=== PATIENT | female | born 1955 | race Caucasian/White ===

== ENCOUNTER 2025-02-06 09:07 | Emergency (ER) | payer MEDICARE, OTHER ==
[~2025-02-06] VITALS: Ht 165.1 cm; Wt 62.0 kg
[2025-02-06] MEDS ORDERED: LISINOPRIL10 MG PO (09:32)
[2025-02-06] MEDS ORDERED: LIRAGLUTID0.6 MG/0.1 (09:33)
[2025-02-06] MEDS ORDERED: EZETIMIBE10 MG PO (09:34)
[2025-02-06] MEDS ORDERED: VAGIFEM10 MCG VAGINAL (09:35)
[2025-02-06] MEDS ORDERED: MORPHINE SULFATE 4 MG/ML VIAL IV ONE (10:00)
[2025-02-06 10:10] LABS: BASOPHILS 0.2 % (0.1-1.2); EOSINOPHILS 0 % (0.7-5.8); LYMPHOCYTES 5.4 % (19.3-51.7); MCH 30.6 PG (25.6-32.2); MCHC 33.0 g/dL (32.2-35.5); MCV 92.9 fL (79.4-94.8); MONOCYTES 3.7 % (4.7-12.5); NEUTROPHILS 90.3 % (34.0-71.1); RBC 4.90 M/uL (3.93-5.22)
[2025-02-06 10:26] LABS: ALT (SGPT) 17.0 U/L (14-59); AST (SGOT) 16.0 U/L (15-37); GLOMERULAR FILTRATION RATE,EST 63.0 mL/min (>60); PROTEIN, TOTAL 7.3 g/dL (6.4-8.2); UREA NITROGEN 19.0 mg/dL (7-18)
[2025-02-06] MEDS ORDERED: SODIUM CHLORIDE 0.9% 1,000 ML IV PRN (11:00)
[2025-02-06 12:33] LABS: BLOOD/HGB, URINE LARGE (Negative); KETONE, URINE SMALL (Negative)
[2025-02-06 12:34] LABS: LEUK ESTERASE, URINE TRACE (negative); NITRITE, URINE NEGATIVE (negative)
[2025-02-06 12:36] LABS: CRYSTALS, URINE NONE SEEN (0-1+); EPITHELIAL CELLS, URINE SQUAMOUS 1+ /lpf (0-1+)
[2025-02-06 12:37] LABS: BACTERIA, URINE 1+ /hpf (negative); CASTS, URINE NONE SEEN \\lpf; REFLEX CULTURE, URINE No (No)
[2025-02-06] MEDS ORDERED: CEPHALEXIN500 M1 PO (13:25)
[2025-02-06] MEDS ORDERED: FLOMAX0.4 MG PO (13:25)
[2025-02-06] MEDS ORDERED: ONDANSETRON ODT4 MG PO (13:25)
[2025-02-06] MEDS ORDERED: HYDROCODON-ACE1 EA10 PO (13:25)
[2025-02-06 13:38] VITALS: BP 104/67
== END 2025-02-06 13:40 | disposition home or self-care (01) ==
LOC: ED 09:07
PROVIDERS: Emergency Medicine
DX: N13.2 Hydronephrosis with renal and ureteral calculous obstruction (principal); Z87.442 Personal history of urinary calculi; E11.9 Type 2 diabetes mellitus without complications; I10 Essential (primary) hypertension; E78.5 Hyperlipidemia, unspecified; Z79.899 Other long term (current) drug therapy
CPT/HCPCS: 36415; 74176; 80053; 81001; 85025; 96374; 96375; 99284-25; J2270; J2405; J7030